=== PATIENT | female | born 2000 | race Caucasian/White ===

== ENCOUNTER 2023-09-08 05:50 | Inpatient (IN) | payer OTHER ==
[2023-09-08 07:03] VITALS: BMI 33.3
[2023-09-08] MEDS ORDERED: ELECTROLYTE-148 SOLN 500 ML IV ONE (07:15)
[2023-09-08 07:43] LABS: BASO % 0.4 % (0-2.0); EOS % 1.2 % (0-4.5); HEMATOCRIT 33.7 % (32.4-45.2); HEMOGLOBIN 11.2 GM/dL (10.7-15.3); LYMPH % 20.1 % (8-40); MCH 28.8 pg (25.7-33.7); MCHC 33.2 g/dl (32.0-36.0); MEAN CELL VOLUME 86.7 fl (80-96); MEAN PLT VOLUME 9.1 fl (7.5-11.1); MONO % 8.9 % (3.8-10.2); NEUT % 69.4 % (42.8-82.8); PLATELET COUNT 301 10^3/uL (134-434); RBC 3.89 M/mm3 (3.60-5.2); RDW 14.3 % (11.6-15.6); WHITE BLOOD COUNT 9.6 K/mm3 (4.0-10.0)
[2023-09-08 07:53] LABS: POTASSIUM 4.5 mmol/L (3.5-5.1)
[2023-09-08 07:58] LABS: CREATININE 0.5 mg/dL (0.55-1.3)
[2023-09-08] MEDS ORDERED: FENTANYL/BUPIVACAINE/NS/PF - PCEA - 50 ML DISP.SYRIN EP ONE ×4 (07:59→17:24)
[2023-09-08] MEDS ORDERED: BUPIVACAINE HCL/PF 0.25% (2.5MG/ML) 10 ML VIAL ONE ×3 (08:05→16:10)
[2023-09-08] MEDS: FENTANYL/BUPIVACAINE/NS/PF - PCEA - 50 ML DISP.SYRIN EP SCH ×4 (08:12→17:29)
[2023-09-08 08:13] LABS: INR 1.08 (0.83-1.09); PROTHROMBIN TIME (PATIENT) 12.5 SEC (9.7-13.0)
[2023-09-08 08:16] LABS: ACTIVATED PTT 30.8 SECONDS (25.2-36.5)
[2023-09-08] MEDS: ELECTROLYTE-148 SOLN 1,000 ML IV SCH ×2 (08:50→09:30)
[2023-09-08] MEDS ORDERED: NALOXONE HCL 0.4 MG/ML VIAL IVPUSH PRN (09:55)
[2023-09-08] MEDS ORDERED: ELECTROLYTE-148 SOLN 1,000 ML IV SCH (12:30)
[2023-09-08] MEDS ORDERED: OXYTOCIN 30 UNITS in 0.9% NS 30 UNIT/500 ML INFUS.BAG IVPB ONE (13:41)
[2023-09-08] MEDS ORDERED: OXYTOCIN 30 UNITS in 0.9% NS 30 UNIT/500 ML INFUS.BAG IVPB SCH (13:45)
[2023-09-08] MEDS ORDERED: FENTANYL CITRATE/PF 50 MCG/ML VIAL ONE (14:55)
[2023-09-08] MEDS ORDERED: LIDOCAINE HCL/PF 2% SDV 5ML VIAL ONE ×2 (14:56→16:12)
[2023-09-08] MEDS ORDERED: SODIUM CHLORIDE 0.9% P/F 10 ML VIAL IJ ONE ×2 (15:21→16:12)
[2023-09-08] MEDS ORDERED: LIDOCAINE HCL 1% PRESERVATIVE FREE - 30ML VIAL ONE (19:33)
[2023-09-08] MEDS ORDERED: OXYTOCIN 20 UNITS in 0.9% NS 20 UNIT/1,000 ML INFUS.BAG IV ONE (19:34)
[2023-09-08] MEDS ORDERED: BENZOCAINE 28 GM HEMORRHOIDAL OINTMENT TP PRN (20:15)
[2023-09-08] MEDS ORDERED: WITCH HAZEL 50% (TUCKS) 40 PAD/JAR PAD TP PRN (20:15)
[2023-09-08] MEDS ORDERED: BENZOCAINE 20% 57 GM BOTTLE TP PRN (20:15)
[2023-09-08] MEDS ORDERED: OXYTOCIN 20 UNITS in 0.9% NS 20 UNIT/1,000 ML INFUS.BAG IV SCH (20:15)
[2023-09-08] MEDS ORDERED: METHYLERGONOVINE MALEATE 0.2 MG/1 ML AMP IM PRN (20:15)
[2023-09-08] MEDS ORDERED: BISACODYL 10 MG SUPP.RECT RC PRN (20:15)
[2023-09-08] MEDS ORDERED: ACETAMINOPHEN 325 MG TABLET (FP) PO PRN (20:15)
[2023-09-08 23:07] VITALS: RESP 18
[2023-09-08] MEDS: IBUPROFEN 600 MG TABLET (FP) PO PRN (23:41)
[2023-09-09 08:12] LABS: BASO % 0.2 % (0-2.0); EOS % 0.6 % (0-4.5); HEMOGLOBIN 9.1 GM/dL (10.7-15.3); MCH 28.9 pg (25.7-33.7); MCHC 33.5 g/dl (32.0-36.0); MEAN CELL VOLUME 86.3 fl (80-96); MEAN PLT VOLUME 8.9 fl (7.5-11.1); MONO % 8.2 % (3.8-10.2); PLATELET COUNT 222 10^3/uL (134-434); RBC 3.13 M/mm3 (3.60-5.2); RDW 14.4 % (11.6-15.6); WHITE BLOOD COUNT 16.8 K/mm3 (4.0-10.0)
[2023-09-09] MEDS: PRENATAL VITAMINS W/ FOLIC ACID TABLET (FP) PO SCH (09:24)
[2023-09-09] MEDS: IBUPROFEN 600 MG TABLET (FP) PO PRN (21:01)
[2023-09-09] MEDS ORDERED: SENNOSIDES/DOCUSATE COMBO (SENNA PLUS) TABLET (UD) PO PRN (22:00)
[2023-09-10] MEDS: PRENATAL VITAMINS W/ FOLIC ACID TABLET (FP) PO SCH (10:06)
[2023-09-10 11:09] VITALS: BP 102/62; PULSE 69; TEMP 98.3
== END 2023-09-10 14:05 | disposition home or self-care (01) | DRG 560 ==
LOC: JLDR 05:50 → J3W 23:08
PROVIDERS: ADMIT Obstetrics & Gynecology; ATTEND Obstetrics & Gynecology
PROC: 10E0XZZ Delivery of Products of Conception, External Approach (ICD-10-PCS; principal; 2023-09-08)
PROC: 0UQMXZZ Repair Vulva, External Approach (ICD-10-PCS; 2023-09-08)
PROC: 10H07YZ Insertion of Other Device into Products of Conception, Via Natural or Artificial Opening (ICD-10-PCS; 2023-09-08)
PROC: 10907ZC Drainage of Amniotic Fluid, Therapeutic from Products of Conception, Via Natural or Artificial Opening (ICD-10-PCS; 2023-09-08)
PROC: 0HQ9XZZ Repair Perineum Skin, External Approach (ICD-10-PCS; 2023-09-08)
DX: O70.0 First degree perineal laceration during delivery (principal); Z3A.39 39 weeks gestation of pregnancy; Z37.0 Single live birth
CPT/HCPCS: 36415; 59025; 80048; 85025; 85610; 85730; 86780; 86850; 86900; 86901